=== PATIENT | male | born 1935 | race Caucasian/White ===

== ENCOUNTER 2017-03-14 11:19 | Inpatient (IN) | payer OTHER ==
--- NOTE | 2017-03-14 11:45 | DR.GENAD ---
HPI - PCP Primary Care Physician: Dr Franks - Complaint/Symptoms Chief Complaint Doctors Comments: Patient with a history of prostate cancer presents with weakness. He recently stopped taking his chemptherapy due to increased weakness according to his son. He fell recently injuring both forearms ; he comlaint of left forearm ain with movement. PMH - PMH Past Surgical History: Yes Surgical History: Ortho Surgery, Tonsillectomy, Other - Family History Family Medical History: Diabetes Mellitus, Cancer, Hypertension ROS - Review of Systems Constitutional: negative: Diaphoresis Eyes: No Symptoms Reported ENTM: No Symptoms Reported Respiratoy: No Symptoms Reported Cardiovascular: No Symptoms Reported Gastrointestinal/Abdominal: No Symptoms Reported Genitourinary: No Symptoms Reported Neurological: Weakness Musculoskeletal: No Symptoms Reported Integumentary: Bruises (bilateral forearms) Hematologic/Lymphatic: No Symptoms Reported Endocrine: No Symptoms Reported Psychiatric: No Symptoms Reported All Other Systems: Reviewed and Negative PE - Vital Signs Vitals: Temperature 96.9 F Pulse Rate [Right Radial] 61 Pulse Rate 61 Respiratory Rate 16 Blood Pressure [Right Arm] 116/70 Blood Pressure [Left Arm] 139/62 Blood Pressure 146/69 O2 Sat by Pulse Oximetry 98 - General General Appearance: Alert, In No Apparent Distress - Head Head Exam: Normal Inspection, Atraumatic - Eyes Eye exam: Normal Appearance, PERRL, EOMI - ENT ENT Exam: Normal Exam External Ear Exam: Normal External Inspection TM/Canal Exam: Bilateral Normal Nose Exam: Normal Nose Exam Mouth Exam: Normal Inspection Throat Exam: Normal Inspection - Neck Neck Exam: Normal Inspection, Full ROM - Chest Chest Inspection: Normal Inspection, Symmetric Chest Wall Rise - Respiratory Respiratory Exam: Normal Lung Sounds Bilat Respiratory Exam: Bilateral Clear to Auscultation - Cardiovascular Cardiovascular Exam: Regular Rate - Abdominal Exam Abdominal Exam: Normal Inspection, Normal Bowel Sounds Abdominal Tenderness: Other (protuberant,non tender) - Extremities Extremities Exam: Edema (right lower extremity) - Back Back Exam: Normal Inspection - Neurologic Neurological Exam: Alert, Oriented X3, CN II-XII Intact - Skin Skin Exam: Warm, Dry Course - Reevaluation 1st: Unchanged - Consultation Called: 13:30 (Dr Franks agreed to admit for further evaluation and treatment) ROR - Labs Reviewed Result Diagrams: 03/14/17 12:00 03/14/17 12:00 Laboratory: WBC 12.6 X10^3/uL (3.6-10.0) H 03/14/17 12:00 RBC 4.12 X10^6/uL (4.7-6.0) L 03/14/17 12:00 Hgb 13.0 g/dL (13.5-18.0) L 03/14/17 12:00 Hct 38.2 % (42.0-54.0) L 03/14/17 12:00 MCV 92.6 fL (80.0-100.0) 03/14/17 12:00 MCH 31.6 pg (27.0-34.0) 03/14/17 12:00 MCHC 34.1 g/dL (33.0-35.0) 03/14/17 12:00 RDW 16.3 % (11.6-16.5) 03/14/17 12:00 Plt Count 303 X10^3/uL (150.0-450.0) 03/14/17 12:00 MPV 9.4 fL (7.4-11.0) 03/14/17 12:00 Neut % 74.6 % (42.0-75.0) 03/14/17 12:00 Lymph % 16.4 % (21.0-51.0) L 03/14/17 12:00 Fisher % 6.1 % (0.0-13.0) 03/14/17 12:00 Eos % 1.4 % (0.9-2.9) 03/14/17 12:00 Baso % 1.5 % (0.2-1.0) H 03/14/17 12:00 Neut # 9.4 x10^3/uL (2.2-4.8) H 03/14/17 12:00 Lymph # 2.1 X10^3/uL (1.3-2.9) 03/14/17 12:00 Fisher # 0.8 x10^3/uL (0.3-0.8) 03/14/17 12:00 Eos # 0.2 x10^3/uL (0.0-0.2) 03/14/17 12:00 Baso # 0.2 X10^3/uL (0.0-0.1) H 03/14/17 12:00 Absolute Nucleated RBC 0.0 /100WBC 03/14/17 12:00 INR Target Range - 03/14/17 12:35 INR 4.74 (0.8-1.3) H 03/14/17 12:35 PTT 97.3 SECONDS (22.9-36.5) H 03/14/17 12:35 PTT Comment - 03/14/17 12:35 Sodium 137 mmol/L (136-145) 03/14/17 12:00 Corrected Sodium 137 mmol/L (136-145) 03/14/17 12:00 Potassium 4.2 mmol/L (3.5-5.1) 03/14/17 12:00 Chloride 100 mmol/L (98-107) 03/14/17 12:00 Carbon Dioxide 23.8 mmol/L (21-32) 03/14/17 12:00 BUN 61 mg/dL (7-18) H 03/14/17 12:00 Creatinine 3.15 mg/dL (0.70-1.30) H 03/14/17 12:00 Est GFR (MDRD) Af Amer 24 (>60) L 03/14/17 12:00 Est GFR (MDRD) Non-Af 20 (>60) L 03/14/17 12:00 Glucose 112 mg/dL (65-99) H 03/14/17 12:00 Calcium 8.2 mg/dL (8.5-10.1) L 03/14/17 12:00 Creatine Kinase 5176 Units/L (39-308) H 03/14/17 12:00 CK-MB (CK-2) 20.3 ng/mL (0-4.0) H* 03/14/17 12:00 CK/CKMB % Calc 0.4 % (<4) 03/14/17 12:00 Troponin I 0.11 ng/mL (0-1.5) 03/14/17 12:00 Specimen Type Clean catch urine 03/14/17 12:44 Urine Color Yellow (YELLOW) 03/14/17 12:44 Urine Appearance Clear (CLEAR) 03/14/17 12:44 Urine pH 5.0 (5.0 - 8.0) 03/14/17 12:44 Ur Specific [place] 1.015 (1.000-1.030) 03/14/17 12:44 Urine Protein 1+ (NEGATIVE) 03/14/17 12:44 Urine Glucose (UA) Negative (NEGATIVE) 03/14/17 12:44 Urine Ketones Negative (NEGATIVE) 03/14/17 12:44 Urine Occult Blood 5+ (NEGATIVE) 03/14/17 12:44 Urine Nitrite Negative (NEGATIVE) 03/14/17 12:44 Urine Bilirubin Negative (NEGATIVE) 03/14/17 12:44 Urine Urobilinogen Normal (NORMAL) 03/14/17 12:44 Ur Leukocyte Esterase Negative (NEGATIVE) 03/14/17 12:44 Urine RBC 10-20 /HPF (NEGATIVE) 03/14/17 12:44 Urine WBC 0-2 /HPF (NEGATIVE) 03/14/17 12:44 Ur Squamous Epith Cells Negative /HPF (NEGATIVE) 03/14/17 12:44 Urine Bacteria Negative /HPF (NEGATIVE) 03/14/17 12:44 Hyaline Casts Moderate /LPF (NEGATIVE) 03/14/17 12:44 Ur Culture Indicated? No/not indicated 03/14/17 12:44 - XRAY XRAY Interpreted by: Radiologist (Chest: ...There are again changes of CABG with median sternotomy sutures and metallic markers indicating coronary artery bypass grafts. Examination is markedly expiratory. Theree is cardiomegaly with aortic uncoiling. Right lung is clear. Some increased density is present in the left luyng base with silhouetting of the left hemidiaphragm. k A small focus of atelectasis, infiltrate or pleural fluid in the this region is not reliably excluded. Osseous structures are intact. CT Abd/Pel:There is a minimal left pleural effusion present. The lungs bases are clear. k The heart is enlarged. Moderate ascities is present. The liver, spleen,adrenal glands and pancreas are within norrmal limits to the limitations of an unenhanced examination only. No opaque stones are visible within the gallbladder. There is right sided hydronephrosis proximal to the pelvic inlet. The precise etiology of the obstruction is not obvious. No ureteral calculus or renal calculus is identified. kThe left kidney is unobstructed and without stones. No left enlarged intraperitoneal or retroperitoneal lymphadenopathy is identified. The appendix is not identified with absolute certainty. There are no secondary signs of appendicities present. There are no findigns suggestive of diverticulitis or colitis. Examination of the pelvis demonstrated no evidence for pelvic masses, pelvic fluid or pelvic lymphadenopathy. No lytic or blastic skeletal lesions are identified. Impression: Moderate ascites of uncertain etiology, Right sided hydrouretteronephrosis to the level of the pelvic inlet. The precise orgin of the obstruction is unclear as no stone is identified. Moderate cardiomegaly.) - Diagnosis Discharge Problem: Weakness, Acute prerenal azotemia Hydronephrosis Qualifiers: Hydronephrosis type: unspecified Qualified Code(s): N13.30 - Unspecified hydronephrosis Rhabdomyolysis Qualifiers: Rhabdomyolysis type: non-traumatic Qualified Code(s): M62.82 - Rhabdomyolysis - Discharge Plan Condition: Stable - Follow ups/Referrals Follow ups/Referrals: Aric Franks [Primary Care Provider] - 3 days - Instructions
[2017-03-14 11:55] VITALS: BMI 30.5
[2017-03-14 12:07] LABS: BASOPHILS # (AUTO) 0.2 X10^3/uL (0.0-0.1); BASOPHILS % (AUTO) 1.5 % (0.2-1.0); EOSINOPHILS # (AUTO) 0.2 x10^3/uL (0.0-0.2); EOSINOPHILS % (AUTO) 1.4 % (0.9-2.9); HEMATOCRIT 38.2 % (42.0-54.0); LYMPHOCYTES # (AUTO) 2.1 X10^3/uL (1.3-2.9); LYMPHOCYTES % (AUTO) 16.4 % (21.0-51.0); MEAN CORPUSCULAR HEMOGLOBIN 31.6 pg (27.0-34.0); MEAN CORPUSCULAR HGB CONC 34.1 g/dL (33.0-35.0); MEAN CORPUSCULAR VOLUME 92.6 fL (80.0-100.0); MEAN PLATELET VOLUME 9.4 fL (7.4-11.0); MONOCYTES # (AUTO) 0.8 x10^3/uL (0.3-0.8); MONOCYTES % (AUTO) 6.1 % (0.0-13.0); NEUTROPHILS # (AUTO) 9.4 x10^3/uL (2.2-4.8); NEUTROPHILS % (AUTO) 74.6 % (42.0-75.0); PLATELET COUNT 303 X10^3/uL (150.0-450.0); RED BLOOD COUNT 4.12 X10^6/uL (4.7-6.0); RED CELL DISTRIBUTION WIDTH 16.3 % (11.6-16.5); WHITE BLOOD COUNT 12.6 X10^3/uL (3.6-10.0)
--- NOTE | 2017-03-14 12:43 | RAD ---
HISTORY: Weakness and upper abdominal pain. Prior history of hypertension, CHF, cardiac bypass and p rostate cancer Study: Single-view chest Comparison: 05/19/2016 Findings: Cardiac monitoring electrodes are noted on chest. There are again changes of CABG with median sternot richelle sutures and metallic markers indicating coronary artery bypass grafts. Examination is markedly ex piratory. There is cardiomegaly with aortic uncoiling. Right lung is clear. Some increased density is present in the left lung base with silhouetting of the left hemidiaphragm. A small focus of atelecta sis, infiltrate or pleural fluid in this region is not reliably excluded. Osseous structures are inta ct. IMPRESSION: Cardiomegaly with postsurgical changes. Expiratory chest with small foci of atelectasis, infiltrate or pleural fluid present in the left lung base. Reported By:
--- NOTE | 2017-03-14 12:44 | CT ---
HISTORY: Weakness, abdominal pain Study: CT abdomen pelvis without contrast Comparison: None Technique: Axial noncontrast images with coronal and sagittal reformats. Dose reduction procedures we re used with mA/kv adjusted for body size. This examination is limited due to the lack of intravenous and oral contrast. Findings: There is a minimal left pleural effusion present. The lung bases are clear. The heart is enlarged. Mo derate ascites is present. The liver, spleen, adrenal glands, and pancreas are within normal limits t o the limitations of an unenhanced examination only. No opaque stones are visible within the gallblad stacie. There is right-sided hydronephrosis proximal to the pelvic inlet. The precise etiology of the ob struction is not obvious. No ureteral calculus or renal calculus is identified. The left kidney is un obstructed and without stones. No left ureteral calculi are identified. Calcific atherosclerotic laurent ge is present in a nondilated abdominal aorta. No enlarged intraperitoneal or retroperitoneal lymphad enopathy is identified. The appendix is not identified with absolute certainty. There are no secondar y signs of appendicitis present. There are no findings suggestive of diverticulitis or colitis. [place] of the pelvis demonstrated no evidence for pelvic masses, pelvic fluid, or pelvic lymphadenopa thy. No lytic or blastic skeletal lesions are identified. IMPRESSION: Moderate ascites of uncertain etiology Right-sided hydroureteronephrosis to the level of the pelvic inlet. The precise origin of the obstruc tion is unclear as no stone is identified. Further urologic evaluation with a retrograde examination may be indicated. Moderate cardiomegaly Reported By:
[2017-03-14 12:51] LABS: BILIRUBIN,URINE NEGATIVE (NEGATIVE); BLOOD/HEMOGLOBIN,URINE 5+ (NEGATIVE); GLUCOSE, URINE NEGATIVE (NEGATIVE); KETONES,URINE NEGATIVE (NEGATIVE); LEUKOCYTE ESTERASE ,URINE NEGATIVE (NEGATIVE); NITRITES,URINE NEGATIVE (NEGATIVE); PROTEIN,URINE 1+ (NEGATIVE); UROBILINOGEN,URINE NORMAL (NORMAL)
[2017-03-14 12:56] LABS: CALCIUM 8.2 mg/dL (8.5-10.1); CARBON DIOXIDE 23.8 mmol/L (21-32); CREATININE 3.15 mg/dL (0.70-1.30)
[2017-03-14 12:59] LABS: CKMB % 0.4 % (<4); CREATINE KINASE MB 20.3 ng/mL (0-4.0); TROPONIN I 0.11 ng/mL (0-1.5)
[2017-03-14 12:59] LABS: APPEARANCE,URINE CLEAR (CLEAR); COLOR,URINE YELLOW (YELLOW); SQUAMOUS EPITHELIAL CELL,UR NEGATIVE /HPF (NEGATIVE)
[2017-03-14 13:00] LABS: BACTERIA,URINE NEGATIVE /HPF (NEGATIVE); HYALINE CASTS, URINE MODERATE /LPF (NEGATIVE)
[2017-03-14 14:01] LABS: BILIRUBIN,URINE NEGATIVE (NEGATIVE); BLOOD/HEMOGLOBIN,URINE 5+ (NEGATIVE); GLUCOSE, URINE NEGATIVE (NEGATIVE); KETONES,URINE NEGATIVE (NEGATIVE); LEUKOCYTE ESTERASE ,URINE NEGATIVE (NEGATIVE); NITRITES,URINE NEGATIVE (NEGATIVE); PROTEIN,URINE 1+ (NEGATIVE); UROBILINOGEN,URINE NORMAL (NORMAL)
[2017-03-14 14:02] LABS: TOTAL PSA 36.74 ng/mL (0.13-4.0)
[2017-03-14] MEDS ORDERED: NS 1000 ML 0 ML ONE (14:10)
[2017-03-14 14:11] LABS: AMORPHOUS SEDIMENT,UR 1+ /HPF (NEGATIVE); APPEARANCE,URINE SLIGHTLY HAZY (CLEAR); BACTERIA,URINE TRACE /HPF (NEGATIVE); COLOR,URINE YELLOW (YELLOW); HYALINE CASTS, URINE FEW /LPF (NEGATIVE); RBC,URINE 0-3 /HPF (NEGATIVE); SQUAMOUS EPITHELIAL CELL,UR RARE /HPF (NEGATIVE)
[2017-03-14] MEDS ORDERED: ZAROXOYLN PO SCH (14:15)
[2017-03-14] MEDS: MORPHINE SULFATE INJ 4 MG IVP PRN (14:22)
[2017-03-14] MEDS: NS 1000 ML 1,000 ML IV SCH ×2 (14:22→19:53)
[2017-03-14] MEDS ORDERED: XYLOCAINE JELLY TOP ONE (14:24)
[2017-03-14 14:30] LABS: ALBUMIN 2.4 g/dL (3.4-5.0); COR CA(FOR HYPOALB) 9.5 mg/dL (8.5-10.1)
[2017-03-14 16:46] LABS: MAGNESIUM 3.1 mg/dL (1.7-2.9)
[2017-03-14] MEDS: LIPITOR TAB 40 MG PO SCH (20:35)
[2017-03-14] MEDS: LOPRESSOR TAB 50 MG PO SCH (20:36)
[2017-03-14] MEDS: K-DUR TAB 20 MEQ PO SCH (20:36)
[2017-03-14] MEDS: TRICOR TAB 160 MG PO SCH (20:37)
[2017-03-14] MEDS: FLOMAX PO SCH (20:37)
[2017-03-14] MEDS: LASIX IVP SCH (20:38)
[2017-03-14] MEDS ORDERED: PATIENT'S HOME MEDICATION (Atorvastatin Calcium [Lipitor] 1 TAB) PO SCH (21:00)
[2017-03-14] MEDS ORDERED: COUMADIN TAB 5 MG PO SCH (21:00)
[2017-03-14] MEDS ORDERED: FENOFIBRATE PO SCH (21:00)
[2017-03-14] MEDS ORDERED: PATIENT'S HOME MEDICATION (Potassium Chloride [K-Tab Er] 20 MEQ) PO SCH (21:00)
[2017-03-14] MEDS: CORDARONE TAB 200 MG PO SCH (23:13)
[2017-03-15] MEDS: NS 1000 ML 1,000 ML IV SCH ×2 (04:53→09:31)
[2017-03-15 05:53] LABS: BASOPHILS # (AUTO) 0.1 X10^3/uL (0.0-0.1); BASOPHILS % (AUTO) 0.5 % (0.2-1.0); EOSINOPHILS # (AUTO) 0.2 x10^3/uL (0.0-0.2); EOSINOPHILS % (AUTO) 1.9 % (0.9-2.9); HEMATOCRIT 30.3 % (42.0-54.0); HEMOGLOBIN 10.3 g/dL (13.5-18.0); LYMPHOCYTES # (AUTO) 1.8 X10^3/uL (1.3-2.9); LYMPHOCYTES % (AUTO) 15.8 % (21.0-51.0); MEAN CORPUSCULAR HEMOGLOBIN 31.4 pg (27.0-34.0); MEAN CORPUSCULAR HGB CONC 34.1 g/dL (33.0-35.0); MEAN CORPUSCULAR VOLUME 92.2 fL (80.0-100.0); MEAN PLATELET VOLUME 9.6 fL (7.4-11.0); MONOCYTES # (AUTO) 0.8 x10^3/uL (0.3-0.8); MONOCYTES % (AUTO) 6.9 % (0.0-13.0); NEUTROPHILS # (AUTO) 8.5 x10^3/uL (2.2-4.8); NEUTROPHILS % (AUTO) 74.9 % (42.0-75.0); PLATELET COUNT 236 X10^3/uL (150.0-450.0); RED BLOOD COUNT 3.29 X10^6/uL (4.7-6.0); RED CELL DISTRIBUTION WIDTH 16.3 % (11.6-16.5); WHITE BLOOD COUNT 11.4 X10^3/uL (3.6-10.0)
[2017-03-15 06:41] LABS: ALANINE AMINOTRANSFERASE 94 Units/L (12-78); ALKALINE PHOSPHATASE 85 Units/L (46-116); ASPARTATE AMINO TRANSFERASE 341 Units/L (15-37); BLOOD UREA NITROGEN 49 mg/dL (7-18); CALCIUM 7.2 mg/dL (8.5-10.1); CARBON DIOXIDE 21.9 mmol/L (21-32); CHLORIDE 103 mmol/L (98-107); COR CA(FOR HYPOALB) 8.8 mg/dL (8.5-10.1); CREATININE 2.83 mg/dL (0.70-1.30); SODIUM 138 mmol/L (136-145); TOTAL PROTEIN 5.9 g/dL (6.4-8.2); eGFR BLACK RACES 28 (>60); eGFR NON BLACK RACES 23 (>60)
[2017-03-15] MEDS ORDERED: OMEPRAZOLE PO SCH (09:00)
[2017-03-15] MEDS ORDERED: PATIENT'S HOME MEDICATION (Cyanocobalamin (Vitamin B-12) [Vitamin B-12] 1,000 MCG) PO SCH (09:00)
[2017-03-15] MEDS: VITAMIN B-12 PO SCH (09:29)
[2017-03-15] MEDS: PriLOSEC PO SCH (09:29)
[2017-03-15] MEDS: LASIX IVP SCH ×2 (09:31→20:29)
[2017-03-15] MEDS: K-DUR TAB 20 MEQ PO SCH ×2 (09:31→20:22)
[2017-03-15] MEDS: LOPRESSOR TAB 50 MG PO SCH ×2 (09:31→20:34)
[2017-03-15] MEDS: CORDARONE TAB 200 MG PO SCH ×2 (09:31→20:36)
[2017-03-15] MEDS: ALBUMIN HUMAN 25%- 100ML 100 ML IV SCH (09:36)
[2017-03-15] MEDS ORDERED: PHARMACY CONSULT - TPN XX SCH (10:00)
[2017-03-15] MEDS ORDERED: BUTT CREAM (COMPOUND) ONE (10:32)
[2017-03-15] MEDS ORDERED: BUTT CREAM (COMPOUND) TOP PRN (10:35)
[2017-03-15] MEDS ORDERED: PROCALAMINE 3 % 1,000 ML IV SCH (11:00)
[2017-03-15] MEDS: NORCO 10/325 TAB PO PRN ×2 (12:49→20:27)
[2017-03-15] MEDS: PROCALAMINE 3 % 1,000 ML IV SCH (14:01)
[2017-03-15] MEDS: LIPITOR TAB 40 MG PO SCH (20:22)
[2017-03-15] MEDS: FLOMAX PO SCH (20:22)
[2017-03-15] MEDS: TRICOR TAB 160 MG PO SCH (20:23)
--- NOTE | 2017-03-15 21:50 | DR.H&P ---
H&P - History & Physical for Day of: H&P Date: 03/14/17 - Chief Complaint Chief Complaint: weakness - Allergies Allergies/Adverse Reactions: Allergies Allergy/AdvReac Type Severity Reaction Status Date / Time No Known Drug Allergies Allergy Verified 03/14/17 11:56 - History of Present Illness History of Present Illness: is a 81 year old patient of ours who presented to the emergency room with complaints of generalized weakness. Patient reports a recent decision to discontinue chemotherapy treatments due to increased weakness. Family reports patient recently fell and injured bilateral forearms. He is noted with complaints of left forearm pain upon movement. Patient's reports that weakness has became increasingly worse over the past week, causing patient to be unable to stand or walk. Patient has also been falling frequently and now seeing double. On examination, heart rate is normal in rate and rhythm. Lungs are noted to be clear to auscultation, bilaterally. Abdomen is distended and noted with mild, diffuse suprapubic tenderness. Bilateral lower extremities are noted with non-pitting edema. On arrival to the ER, vitals were 96.9, 61, 17, 97% RA, 146/69. Labs were obtained. Abnormal lab values include the following: WBC 12.6, RBC 4.12, Hgb 13.0, Hct 38.2, INR 4.74, PTT 97.3, BUN 61, Creatinine 3.15, GFR af 24, GFR non 20, Glucose 112, Calcium 8.2, Magnesium 3.1, AST 406, ALT 116, Creatine Kinase 5176, CKMB 20.3, Albumin 2.4, Globulin 4.6, A/G Ratio 0.5, Total PSA 36.74. Urinalysis reports: (Clean Catch) Protein 1+, Occult Blood 5+, RBC 10-20, WBC 0- 2, Hyaline Casts Moderate; (Catherized) Hazy, Protein 1+, Occult Blood 5+, RBC 0 -3, WBC 0-3, Sediment 1+, Bacteria Trace, Hyaline Casts Few. EKG reports: Sinus Rhythm. Rate=60. Chest X-Ray reports: Cardiomegaly with postsurgical changes. Expiratory chest with small foci of atelectasis, infiltrate or pleural fluid present in the left lung base. Abdomen/Pelvis CT reports: Moderate ascites of uncertain etiology. Right-sided hydroureteronephrosis to the level of the pelvic inlet. The precise origin of the obstruction is unclear as no stone is identified. Further urologic evaluation with a retrograde examination may be indicated. Moderate cardiomegaly. We admitted patient to the hospital for further evaluation and treatment of ascites, pre-renal azotemia, and hydronephrosis. We started him on normal saline at 175 ml/hr. We planned to follow up with am labs and continue to monitor patient. - Past Medical History Past Medical History: Arthritis, CHF, Coronary Artery Disease, CVA, Depression, Dyslipidemia, GERD, Hypertension - Past Surgical History Surgical History: Ortho Surgery, Tonsillectomy, Other - Family History Family Medical History: Diabetes Mellitus, Cancer, Hypertension - Social History Does patient currently use any type of tobacco product: No Have you used tobacco products in the last 12 months: No Type of Tobacco Use: None Does any household member use tobacco: No Alcohol Use: None Drug Use: None - Medications Home Medications: Amiodarone HCl [Cordarone Tab 200 mg] 200 mg PO BID 03/14/17 [History Confirmed 03/14/17] Cyanocobalamin (Vitamin B-12) [Vitamin B-12] 1,000 mcg PO DAILY 03/14/17 [ History Confirmed 03/14/17] Metolazone [Zaroxoyln] 2.5 mg PO .Q3DAYS 03/14/17 [History Confirmed 03/14/17] Metoprolol Tartrate [Lopressor Tab 50 mg] 50 mg PO BID 03/14/17 [History Confirmed 03/14/17] Oxybutynin Chloride [Oxybutynin Chloride ER] 10 mg PO HS 03/14/17 [History Confirmed 03/14/17] Potassium Chloride [K-Tab] 20 meq PO DAILY 03/14/17 [History Confirmed 03/14/17] Tamsulosin HCl [Flomax] 0.4 mg PO HS 03/14/17 [History Confirmed 03/14/17] Warfarin Sodium [COUMADIN 4 MG *] 4 mg PO DAILY 03/14/17 [History Confirmed ] - Review of Systems Constitutional: Weakness Eyes: No Symptoms Reported. denies: See HPI, Pain, Vision Change, Conjunctivae Inflammation, Eyelid Inflammation, Redness, Other ENT: No Symptoms Reported. denies: See HPI, Ear Pain, Ear Discharge, Nose Pain , Nose Discharge, Nose Congestion, Mouth Pain, Mouth Swelling, Throat Pain, Throat Swelling, Other Respiratory: No Symptoms Reported. denies: See HPI, Cough, Dry, Shortness of Breath, Hemoptysis, SOB with Excertion, Pleuritic Pain, Sputum, Wheezing, Other Cardiovascular: Edema, Light Headedness. denies: Palpitations, Orthopnea, Paroxysmal Noc. Dyspnea Gastrointestinal: Abdominal Pain. denies: Vomiting, Diarrhea, Constipation, Melena, Hematochezia Genitourinary: No Symptoms Reported Musculoskeletal: No Symptoms Reported Skin: See HPI, Bruising, Wound Neurological: Weakness - Physical Exam Vital Signs: Temperature 97.9 F Pulse Rate [Left Brachial] 65 Pulse Rate [Right Radial] 62 Pulse Rate 61 Respiratory Rate 18 Blood Pressure [Right Arm] 116/70 Blood Pressure [Left Arm] 148/70 Blood Pressure 146/69 O2 Sat by Pulse Oximetry 96 Oriented: Normal Eyes: Normal Ear: Normal Nose: Normal Throat: Normal Respiratory: Clear Throughout Cardiovascular: Edema (bilateral lower extremities ) : Normal Auscultation: Bowel Sounds: Normal Palpation: Normal Tenderness: Suprapubic, Mild Skin: Tender, Wound (bilateral upper extremity skin tears and bruising ), Bruising Musculoskeletal: Normal Psychiatric: Normal Mood Description: Calm Affect: Normal Speech Pattern: Clear - Assessment/Plan (1) Acute prerenal azotemia Status: Acute (2) Weakness Status: Acute
[2017-03-16] MEDS: NS 1000 ML 1,000 ML IV SCH ×4 (03:54→16:07)
[2017-03-16 06:04] LABS: BASOPHILS % (AUTO) 0.3 % (0.2-1.0); EOSINOPHILS # (AUTO) 0.2 x10^3/uL (0.0-0.2); EOSINOPHILS % (AUTO) 1.4 % (0.9-2.9); HEMATOCRIT 30.9 % (42.0-54.0); HEMOGLOBIN 10.5 g/dL (13.5-18.0); LYMPHOCYTES # (AUTO) 1.7 X10^3/uL (1.3-2.9); LYMPHOCYTES % (AUTO) 14.8 % (21.0-51.0); MEAN CORPUSCULAR HEMOGLOBIN 31.4 pg (27.0-34.0); MEAN CORPUSCULAR HGB CONC 33.9 g/dL (33.0-35.0); MEAN CORPUSCULAR VOLUME 92.7 fL (80.0-100.0); MEAN PLATELET VOLUME 9.7 fL (7.4-11.0); MONOCYTES # (AUTO) 0.7 x10^3/uL (0.3-0.8); MONOCYTES % (AUTO) 6.2 % (0.0-13.0); NEUTROPHILS % (AUTO) 77.3 % (42.0-75.0); PLATELET COUNT 213 X10^3/uL (150.0-450.0); RED BLOOD COUNT 3.33 X10^6/uL (4.7-6.0); RED CELL DISTRIBUTION WIDTH 16.3 % (11.6-16.5); WHITE BLOOD COUNT 11.6 X10^3/uL (3.6-10.0)
[2017-03-16 06:35] LABS: ALANINE AMINOTRANSFERASE 85 Units/L (12-78); ALKALINE PHOSPHATASE 75 Units/L (46-116); ASPARTATE AMINO TRANSFERASE 288 Units/L (15-37); BLOOD UREA NITROGEN 49 mg/dL (7-18); CALCIUM 7.2 mg/dL (8.5-10.1); CARBON DIOXIDE 20.9 mmol/L (21-32); CHLORIDE 104 mmol/L (98-107); COR CA(FOR HYPOALB) 8.8 mg/dL (8.5-10.1); CREATININE 2.49 mg/dL (0.70-1.30); SODIUM 138 mmol/L (136-145); eGFR BLACK RACES 32 (>60); eGFR NON BLACK RACES 26 (>60)
[2017-03-16] MEDS: NORCO 10/325 TAB PO PRN ×2 (08:25→20:46)
[2017-03-16] MEDS: ALBUMIN HUMAN 25%- 100ML 100 ML IV SCH (09:00)
[2017-03-16] MEDS: CORDARONE TAB 200 MG PO SCH ×2 (09:00→20:45)
[2017-03-16] MEDS: K-DUR TAB 20 MEQ PO SCH ×2 (09:01→20:48)
[2017-03-16] MEDS: LASIX IVP SCH ×2 (09:01→20:44)
[2017-03-16] MEDS: PriLOSEC PO SCH (09:01)
[2017-03-16] MEDS: VITAMIN B-12 PO SCH (09:01)
[2017-03-16] MEDS: LOPRESSOR TAB 50 MG PO SCH ×2 (09:01→20:48)
[2017-03-16] MEDS: MORPHINE SULFATE INJ 4 MG IVP PRN (16:18)
[2017-03-16] MEDS: PROCALAMINE 3 % 1,000 ML IV SCH (16:19)
[2017-03-16] MEDS: ZOFRAN INJ 4 MG VIAL IVP PRN (17:31)
[2017-03-16] MEDS: LIPITOR TAB 40 MG PO SCH (20:44)
[2017-03-16] MEDS: TRICOR TAB 160 MG PO SCH (20:44)
[2017-03-16] MEDS: FLOMAX PO SCH (20:44)
[2017-03-17] MEDS: NS 1000 ML 1,000 ML IV SCH (00:12)
[2017-03-17 05:41] LABS: BASOPHILS # (AUTO) 0.1 X10^3/uL (0.0-0.1); BASOPHILS % (AUTO) 0.7 % (0.2-1.0); EOSINOPHILS # (AUTO) 0.3 x10^3/uL (0.0-0.2); EOSINOPHILS % (AUTO) 2.5 % (0.9-2.9); HEMATOCRIT 30.1 % (42.0-54.0); HEMOGLOBIN 10.2 g/dL (13.5-18.0); LYMPHOCYTES # (AUTO) 1.7 X10^3/uL (1.3-2.9); LYMPHOCYTES % (AUTO) 14.6 % (21.0-51.0); MEAN CORPUSCULAR HEMOGLOBIN 31.5 pg (27.0-34.0); MEAN CORPUSCULAR VOLUME 92.7 fL (80.0-100.0); MEAN PLATELET VOLUME 9.9 fL (7.4-11.0); MONOCYTES # (AUTO) 0.8 x10^3/uL (0.3-0.8); MONOCYTES % (AUTO) 6.9 % (0.0-13.0); NEUTROPHILS # (AUTO) 8.7 x10^3/uL (2.2-4.8); NEUTROPHILS % (AUTO) 75.3 % (42.0-75.0); PLATELET COUNT 210 X10^3/uL (150.0-450.0); RED BLOOD COUNT 3.25 X10^6/uL (4.7-6.0); RED CELL DISTRIBUTION WIDTH 16.5 % (11.6-16.5); WHITE BLOOD COUNT 11.5 X10^3/uL (3.6-10.0)
[2017-03-17 05:46] LABS: ALANINE AMINOTRANSFERASE 76 Units/L (12-78); ALKALINE PHOSPHATASE 62 Units/L (46-116); ASPARTATE AMINO TRANSFERASE 262 Units/L (15-37); BLOOD UREA NITROGEN 50 mg/dL (7-18); CALCIUM 7.1 mg/dL (8.5-10.1); CARBON DIOXIDE 19.3 mmol/L (21-32); CHLORIDE 105 mmol/L (98-107); COR CA(FOR HYPOALB) 8.7 mg/dL (8.5-10.1); CREATININE 2.48 mg/dL (0.70-1.30); SODIUM 137 mmol/L (136-145); TOTAL PROTEIN 5.8 g/dL (6.4-8.2); eGFR BLACK RACES 32 (>60); eGFR NON BLACK RACES 27 (>60)
[2017-03-17] MEDS: NORCO 10/325 TAB PO PRN ×3 (08:49→22:13)
[2017-03-17] MEDS: VITAMIN B-12 PO SCH (08:50)
[2017-03-17] MEDS: PriLOSEC PO SCH (08:50)
[2017-03-17] MEDS: CORDARONE TAB 200 MG PO SCH ×2 (08:51→22:09)
[2017-03-17] MEDS: LASIX IVP SCH ×2 (08:52→22:09)
[2017-03-17] MEDS: K-DUR TAB 20 MEQ PO SCH ×2 (08:52→22:08)
[2017-03-17] MEDS: ALBUMIN HUMAN 25%- 100ML 100 ML IV SCH (08:53)
[2017-03-17] MEDS: LOPRESSOR TAB 50 MG PO SCH ×2 (08:59→22:08)
[2017-03-17] MEDS: ZOFRAN INJ 4 MG VIAL IVP PRN (13:15)
[2017-03-17 13:57] LABS: ABG BASE EXCESS -2.7 mmol/L (-2.0-2.0); ABG HCO3 21.8 mmol/L (22-26)
[2017-03-17 13:58] LABS: ABG ALLEN TEST POS
[2017-03-17] MEDS ORDERED: LASIX IVP SCH (14:00)
--- NOTE | 2017-03-17 14:23 | RAD ---
Examination: Portable AP chest History: CHF Comparison reference 03/14/2017 Findings: Persistent mild cardiomegaly with postsurgical findings. Increasing vascular congestion an d bilateral interstitial disease, accentuated in the left lower lobe as before. There is no evidence for large pleural effusion or complicating pneumothorax. Impression: Stable cardiac prominence with increasing findings of congestive failure and interstitial edema. Reported By:
[2017-03-17] MEDS ORDERED: ZOFRAN INJ 4 MG VIAL IVP ONE (17:32)
[2017-03-17] MEDS: FLOMAX PO SCH (22:07)
[2017-03-17] MEDS: LIPITOR TAB 40 MG PO SCH (22:08)
[2017-03-17] MEDS: TRICOR TAB 160 MG PO SCH (22:08)
[2017-03-18] MEDS: MORPHINE SULFATE INJ 4 MG IVP PRN ×2 (02:09→10:38)
[2017-03-18 07:19] LABS: BASOPHILS # (AUTO) 0.1 X10^3/uL (0.0-0.1); BASOPHILS % (AUTO) 0.5 % (0.2-1.0); EOSINOPHILS # (AUTO) 0.3 x10^3/uL (0.0-0.2); EOSINOPHILS % (AUTO) 2.3 % (0.9-2.9); HEMATOCRIT 31.6 % (42.0-54.0); HEMOGLOBIN 10.8 g/dL (13.5-18.0); LYMPHOCYTES # (AUTO) 1.7 X10^3/uL (1.3-2.9); LYMPHOCYTES % (AUTO) 14.3 % (21.0-51.0); MEAN CORPUSCULAR HEMOGLOBIN 31.5 pg (27.0-34.0); MEAN CORPUSCULAR VOLUME 92.8 fL (80.0-100.0); MEAN PLATELET VOLUME 9.8 fL (7.4-11.0); MONOCYTES # (AUTO) 0.8 x10^3/uL (0.3-0.8); MONOCYTES % (AUTO) 6.4 % (0.0-13.0); NEUTROPHILS # (AUTO) 9.3 x10^3/uL (2.2-4.8); NEUTROPHILS % (AUTO) 76.5 % (42.0-75.0); PLATELET COUNT 222 X10^3/uL (150.0-450.0); RED BLOOD COUNT 3.41 X10^6/uL (4.7-6.0); RED CELL DISTRIBUTION WIDTH 16.7 % (11.6-16.5); WHITE BLOOD COUNT 12.1 X10^3/uL (3.6-10.0)
[2017-03-18 07:31] LABS: BLOOD UREA NITROGEN 58 mg/dL (7-18); CALCIUM 7.1 mg/dL (8.5-10.1); CARBON DIOXIDE 22.1 mmol/L (21-32); CHLORIDE 104 mmol/L (98-107); CREATININE 2.87 mg/dL (0.70-1.30); SODIUM 137 mmol/L (136-145); eGFR BLACK RACES 27 (>60); eGFR NON BLACK RACES 22 (>60)
[2017-03-18 08:06] LABS: ALANINE AMINOTRANSFERASE 77 Units/L (12-78); ALBUMIN 2.4 g/dL (3.4-5.0); ALKALINE PHOSPHATASE 68 Units/L (46-116); ASPARTATE AMINO TRANSFERASE 267 Units/L (15-37); COR CA(FOR HYPOALB) 8.4 mg/dL (8.5-10.1); TOTAL PROTEIN 6.1 g/dL (6.4-8.2)
[2017-03-18] MEDS: NORCO 10/325 TAB PO PRN (08:50)
[2017-03-18] MEDS: CORDARONE TAB 200 MG PO SCH (08:50)
[2017-03-18] MEDS: LASIX IVP SCH (08:52)
[2017-03-18] MEDS: LOPRESSOR TAB 50 MG PO SCH (08:52)
[2017-03-18] MEDS: K-DUR TAB 20 MEQ PO SCH (08:53)
[2017-03-18] MEDS: PriLOSEC PO SCH (08:53)
[2017-03-18] MEDS: VITAMIN B-12 PO SCH (09:00)
[2017-03-18 11:50] VITALS: BP 126/56
--- NOTE | 2017-03-21 10:59 | PCM.PROG ---
Progress Note - Progress Note for Day of Date: 03/15/17 - Subjective Subjective: WAS ADMITTED FOR MODERATE ASCITES, PRE-RENAL AZOTEMIA, AND HYDRONEPHOROSIS. PATIENT IS ALERT AND ORIENTED, LYING IN BED ON MORNING ROUNDS. PATIENTS DAUGHTER IS AT BEDSIDE. HE IS NOTED WITH COMPLAINTS OF GENERALIZED WEAKNESS. PATIENTS DAUGHTER REPORTS THAT PATIENT HAD A PET SCAN DONE YESTERDAY THAT WAS ORDERED BY . WE WILL OBTAIN THESE RESULTS FOR OUR RECORDS. ON EXAMINATION, LUNG SOUNDS ARE DIMINISHED. ABDOMEN IS NOTED WITH MODERATE ASCITIES AND SUPRAPUBIC TENDERNESS. BOWEL SOUNDS ARE NORMAL IN ALL QUADRANTS. BILATERAL LOWER EXTREMITIES CONTINUE WITH NON-PITING EDEMA. HIS VITAL SIGNS THIS MORNING ARE 98.4-67-18-94%-118/56. ABNORMAL LAB VALUES INCLUDE THE FOLLOWING: WBC 11.4, RBC 3.29, HGB 10.3, HCT 30.3, BUN 49, CREATININIE 2.83, GFR 23, CALCIUM 7.2, AST 341, ALT 94, TOTAL PROTEIN 5.9, ALBUMIN 2.0, A/G RATIO 0.5. PET SCAN RESULTS WERE OBTAINED AND REPORTED FOCAL AREA OF HYPERMETABOLIC ACTIVITY IN THE L4 VERTEBRA HAS IMPROVED SINCE PREVIOUS PET/CT, OTHERWISE, UNREMARKABLE PET/CT, NO LYMPHADENOPATHY OR MASS SEEN. SMALL AMOUNT OF ASCITES IN THE ABDOMEN AND PELVIS. PATIENTS FAMILY DISCUSSED HOSPICE CARE AT HOME AFTER DISCHARGE DUE TO PATIENTS DECLINING CONDITION IN THE PAST SEVERAL MONTHS. WE FEEL THAT THIS IS AN APPROPRIATE REQUEST AND WILL HAVE CASE MANAGEMENT CHECK INTO OPTIONS FOR THE PATIENT AND FAMILY. TODAY, WE PLAN TO START WOUND CARE ON SKIN TEARS TO BILATERAL ARMS. WE WILL ALSO START ALBUMIN 25 % DAILY AND TPN. OTHERWISE, WE WILL CONTINUE TO MONITOR PATIENT. - Past Medical Family Social History Past Med/Fam/Surg Hx: No changes since H&P Allergies: Allergies No Known Drug Allergies Allergy (Verified 03/14/17 11:56) - Review of Systems ROS: No change since H&P - Vital Signs and I&O's Vital Signs: Temperature 97.7 F Pulse Rate [Left Brachial] 80 Pulse Rate [Right Radial] 65 Pulse Rate 66 Respiratory Rate 20 Blood Pressure [Right Arm] 126/56 Blood Pressure [Left Arm] 139/69 Blood Pressure 146/69 O2 Sat by Pulse Oximetry 99 Intake and Output: Intake & Output 03/18/17 03/19/17 03/20/17 03/21/17 11:59 11:59 11:59 11:59 Intake Total 1490 Output Total 885 Balance 605 - Physical Exam Oriented: Normal Eyes: Normal Ear: Normal Nose: Normal Throat: Normal Respiratory: Diminished Cardiovascular: Edema (bilateral lower extremities ) : Normal Auscultation: Bowel Sounds: Normal Tenderness: Suprapubic, Mild Skin: Tender, Wound (bilateral upper extremity skin tears and bruising ), Bruising Musculoskeletal: Normal Psychiatric: Normal Mood Description: Calm Affect: Normal Speech Pattern: Clear, Appropriate - Laboratory and Diagnostics Result Diagrams: 03/18/17 03:40 03/18/17 03:40 Labs: Laboratory WBC 12.1 X10^3/uL (3.6-10.0) H 03/18/17 03:40 RBC 3.41 X10^6/uL (4.7-6.0) L 03/18/17 03:40 Hgb 10.8 g/dL (13.5-18.0) L 03/18/17 03:40 Hct 31.6 % (42.0-54.0) L 03/18/17 03:40 MCV 92.8 fL (80.0-100.0) 03/18/17 03:40 MCH 31.5 pg (27.0-34.0) 03/18/17 03:40 MCHC 34.0 g/dL (33.0-35.0) 03/18/17 03:40 RDW 16.7 % (11.6-16.5) H 03/18/17 03:40 Plt Count 222 X10^3/uL (150.0-450.0) 03/18/17 03:40 MPV 9.8 fL (7.4-11.0) 03/18/17 03:40 Neut % 76.5 % (42.0-75.0) H 03/18/17 03:40 Lymph % 14.3 % (21.0-51.0) L 03/18/17 03:40 [place] % 6.4 % (0.0-13.0) 03/18/17 03:40 Eos % 2.3 % (0.9-2.9) 03/18/17 03:40 Baso % 0.5 % (0.2-1.0) 03/18/17 03:40 Neut # 9.3 x10^3/uL (2.2-4.8) H 03/18/17 03:40 Lymph # 1.7 X10^3/uL (1.3-2.9) 03/18/17 03:40 [place] # 0.8 x10^3/uL (0.3-0.8) 03/18/17 03:40 Eos # 0.3 x10^3/uL (0.0-0.2) H 03/18/17 03:40 Baso # 0.1 X10^3/uL (0.0-0.1) 03/18/17 03:40 Absolute Nucleated RBC 0.0 /100WBC 03/18/17 03:40 INR Target Range - 03/17/17 18:10 INR 3.78 (0.8-1.3) H 03/17/17 18:10 PTT 97.3 SECONDS (22.9-36.5) H 03/14/17 12:35 PTT Comment - 03/14/17 12:35 Sample Site Rrad 03/17/17 13:13 ABG pH 7.390 (7.35-7.45) 03/17/17 13:13 ABG pCO2 36.0 mmHg (35.0-45.0) 03/17/17 13:13 ABG pO2 74.0 mmHg (80.0-100.0) L 03/17/17 13:13 ABG HCO3 21.8 mmol/L (22-26) L 03/17/17 13:13 ABG O2 Saturation 95.0 % (90-100) 03/17/17 13:13 ABG Base Excess -2.7 mmol/L (-2.0-2.0) L 03/17/17 13:13 Huy Test Pos 03/17/17 13:13 A-a Gradient 31.0 mmHg 03/17/17 13:13 FiO2 21.000 03/17/17 13:13 Blood Gas Comments Gala well done by yecenia 03/17/17 13:13 Sodium 137 mmol/L (136-145) 03/18/17 03:40 Corrected Sodium TNP 03/18/17 03:40 Potassium 4.8 mmol/L (3.5-5.1) 03/18/17 03:40 Chloride 104 mmol/L (98-107) 03/18/17 03:40 Carbon Dioxide 22.1 mmol/L (21-32) 03/18/17 03:40 BUN 58 mg/dL (7-18) H 03/18/17 03:40 Creatinine 2.87 mg/dL (0.70-1.30) H 03/18/17 03:40 Est GFR (MDRD) Af Amer 27 (>60) L 03/18/17 03:40 Est GFR (MDRD) Non-Af 22 (>60) L 03/18/17 03:40 Glucose 84 mg/dL (65-99) 03/18/17 03:40 Calcium 7.1 mg/dL (8.5-10.1) L 03/18/17 03:40 Corrected Calcium 8.4 mg/dL (8.5-10.1) L 03/18/17 03:40 Magnesium 3.1 mg/dL (1.7-2.9) H 03/14/17 12:00 Iron 59 ug/dL (50-175) 03/14/17 12:35 TIBC 346 ug/dL (250-450) 03/14/17 12:35 Ferritin 146 ng/mL (26-388) 03/14/17 12:35 Total Bilirubin 0.80 mg/dL (0.2-1.0) 03/18/17 03:40 AST 267 Units/L (15-37) H 03/18/17 03:40 ALT 77 Units/L (12-78) 03/18/17 03:40 Alkaline Phosphatase 68 Units/L (46-116) 03/18/17 03:40 Creatine Kinase 5176 Units/L (39-308) H 03/14/17 12:00 CK-MB (CK-2) 20.3 ng/mL (0-4.0) H* 03/14/17 12:00 CK/CKMB % Calc 0.4 % (<4) 03/14/17 12:00 Troponin I 0.11 ng/mL (0-1.5) 03/14/17 12:00 Total Protein 6.1 g/dL (6.4-8.2) L 03/18/17 03:40 Albumin 2.4 g/dL (3.4-5.0) L 03/18/17 03:40 Globulin 3.7 g/dL (2.5-4.5) 03/18/17 03:40 Albumin/Globulin Ratio 0.6 Ratio (1.1-2.1) L 03/18/17 03:40 Prealbumin 13.4 mg/dL (18-35.7) L 03/15/17 04:55 Total PSA 36.74 ng/mL (0.13-4.0) H 03/14/17 12:35 Specimen Type Catherized urine 03/14/17 13:45 Urine Color Yellow (YELLOW) 03/14/17 13:45 Urine Appearance Slightly hazy (CLEAR) 03/14/17 13:45 Urine pH 5.0 (5.0 - 8.0) 03/14/17 13:45 Ur Specific [place] 1.015 (1.000-1.030) 03/14/17 13:45 Urine Protein 1+ (NEGATIVE) 03/14/17 13:45 Urine Glucose (UA) Negative (NEGATIVE) 03/14/17 13:45 Urine Ketones Negative (NEGATIVE) 03/14/17 13:45 Urine Occult Blood 5+ (NEGATIVE) 03/14/17 13:45 Urine Nitrite Negative (NEGATIVE) 03/14/17 13:45 Urine Bilirubin Negative (NEGATIVE) 03/14/17 13:45 Urine Urobilinogen Normal (NORMAL) 03/14/17 13:45 Ur Leukocyte Esterase Negative (NEGATIVE) 03/14/17 13:45 Urine RBC 0-3 /HPF (NEGATIVE) 03/14/17 13:45 Urine WBC 0-3 /HPF (NEGATIVE) 03/14/17 13:45 Ur Squamous Epith Cells Rare /HPF (NEGATIVE) 03/14/17 13:45 Amorphous Sediment 1+ /HPF (NEGATIVE) 03/14/17 13:45 Urine Bacteria Trace /HPF (NEGATIVE) 03/14/17 13:45 Hyaline Casts Few /LPF (NEGATIVE) 03/14/17 13:45 Ur Culture Indicated? No/not indicated 03/14/17 13:45 - Plan (1) Acute prerenal azotemia Status: Acute Plan: CONTINUE TO HYDRATE WITH NORMAL SALINE, CONTINUE TO MONITOR (2) Weakness Status: Acute Plan: START ALBUMIN 25% IV DAILY, START TPN, CONTINUE TO MONITOR
== END 2017-03-18 11:15 | disposition short-term general hospital (02) | DRG 694 ==
LOC: ER 11:37 → MED/SURG 14:01
PROVIDERS: ADMIT Internal Medicine; ATTEND Internal Medicine
DX: N13.30 Unspecified hydronephrosis (principal); M62.82 Rhabdomyolysis; R79.89 Other specified abnormal findings of blood chemistry; R94.31 Abnormal electrocardiogram [ECG] [EKG]; I25.10 Atherosclerotic heart disease of native coronary artery without angina pectoris; F32.89 Other specified depressive episodes; E78.2 Mixed hyperlipidemia; K21.9 Gastro-esophageal reflux disease without esophagitis; I13.0 Hypertensive heart and chronic kidney disease with heart failure and stage 1 through stage 4 chronic kidney disease, or unspecified chronic kidney disease; M13.89 Other specified arthritis, multiple sites; Z91.81 History of falling; C61 Malignant neoplasm of prostate; I50.9 Heart failure, unspecified; E11.22 Type 2 diabetes mellitus with diabetic chronic kidney disease; N18.9 Chronic kidney disease, unspecified; N17.8 Other acute kidney failure; R26.89 Other abnormalities of gait and mobility; R97.20 Elevated prostate specific antigen [PSA]; R74.8 Abnormal levels of other serum enzymes; Z92.21 Personal history of antineoplastic chemotherapy
CPT/HCPCS: 36415; 36600; 51702; 71010; 74176; 80053; 81001; 82550; 82553; 82728; 82803; 83540; 83550; 83735; 84134; 84153; 84484; 85025; 85610; 85730; 93005; 93010; 94760; 96365; 97535; 99231; 99284; A4216; A4222; B5200; P9047; J1940; J2270; J2405